=== PATIENT | male | born 1985 | race African-American/Black ===

== ENCOUNTER 2021-09-19 21:18 | Emergency (ER) | payer OTHER ==
[~2021-09-19] VITALS: Ht 182.9 cm; Wt 71.0 kg
[2021-09-19] MEDS ORDERED: METHYLPREDNISOLONE SOD SUCC 125 MG/2 ML VIAL IM STA (22:13)
[2021-09-19] MEDS ORDERED: DIPHENHYDRAMINE 50MG/ML VIAL IM ONE (22:15)
[2021-09-19] MEDS ORDERED: P50 PO (22:24)
[2021-09-19] MEDS ORDERED: DIPH25CA83 PO (22:24)
[2021-09-19 23:07] VITALS: BP 128/70
== END 2021-09-19 23:11 | disposition home or self-care (01) ==
LOC: ER 21:18
DX: L23.6 Allergic contact dermatitis due to food in contact with the skin (principal)
CPT/HCPCS: 96372; 99284; J1200; J2930